=== PATIENT | male | born 2000 | race African-American/Black ===

== ENCOUNTER 2021-04-06 13:58 | Emergency (ER) | payer SELFPAY ==
[2021-04-06] MEDS ORDERED: Ibuprofen 200 MG TAB ONE ×2 (15:57→16:02)
[2021-04-07 12:50] LABS: SARS-CoV-2 PCR by NAA Not Detected (NotDetected)
== END 2021-04-06 16:03 | disposition home or self-care (01) ==
LOC: CSHERS 13:58
DX: J02.8 Acute pharyngitis due to other specified organisms (principal); F17.290 Nicotine dependence, other tobacco product, uncomplicated; Z20.822 Contact with and (suspected) exposure to COVID-19
CPT/HCPCS: 87081; 87430; 99284; U0003; U0005